=== PATIENT | female | born 1960 | race African-American/Black ===

== ENCOUNTER → 2017-04-20 | Outpatient (CLI) | payer OTHER ==
[~2017-04-20] MED LIST: ALDACTAZIDE PO; ANTIVERT PO; ASPIRIN325 M1 PO; ATIVAN PO; CARVEDILOL12.5 MG PO; CIPRO PO; CLONIDINE1 EAC1 TD; COREG12.5 MG PO; HCTZ; LISINOPRIL; LOTREL 10/20 MG1 CAP PO; LOTREL 10/40 MG1 CAP PO; NORVASC; TOPROL XL PO
--- NOTE | ~2017-04-20 | CT57 ---
[facility] A Service of [facility] RADIOLOGY TEXT RESULTS PATIENT: VALARIE ROCHA LOCATION: [facility] : 64 UNIT #: [id number] AGE: [address]: Brandy Clifford MD SEX: F ORDER DR: [id number] [facility] [address] [place], [place] [address] [id number] O MR#: [id number] [facility] #: [id number] NAME: VALARIE ROCHA : 1960 SEX: F STUDY DATE/TIME: 04/20/2017 14:21 UNIT: [facility] ROOM: STUDY DESCRIPTION: CT Chest Wo Cont Attending Physician: Brandy Clifford M.D. Referring Physician: Brandy Clifford M.D. Ordering Physician: Brandy Clifford M.D. Primary Care Physician: Brandy Clifford M.D. MEDICAL IMAGING REPORT This report is preliminary unless electronic signature is present EXAM CT of the chest without contrast. CLINICAL HISTORY This patient had an abnormal CT of the chest performed February 12, 2016, which showed a tubular structure in the left lower lobe. It was also present in January of 2015. TECHNIQUE Axial CT imaging was obtained from the thoracic inlet through the dome of the diaphragm. No intravenous contrast material was administered. This CT exam was performed with one or more of the following radiation dose reduction techniques: automatic exposure control, adjustment of mA and/or kV according to patient size, and iterative reconstruction. FINDINGS The previously identified, tubular structure within the left lower lobe is again seen. It is unchanged when compared to prior examinations, however, it clearly has a draining artery and vein and is characteristic of a pulmonary AVM. Feeding artery and draining vein both measure about 2 mm in size. This is stable when compared to the prior study from January of 2015. Tiny noncalcified pulmonary nodules seen within the right lower lobe adjacent to the fissure is stable when compared to 2015, and this is benign. No additional pulmonary nodules or masses are seen. The thyroid gland, trachea and esophagus appear unremarkable. There is no pleural or pericardial effusion. Mediastinal lymph nodes do not appear pathologically enlarged. Thoracic aorta measures within normal size limits. Bilateral lipid rich adrenal adenomas are noted. There is a tiny low-attenuation lesions seen within the right hepatic lobe which has been unchanged since January of 2015, and again is benign. I do not see any acute abnormalities within the upper abdomen. Review of bony windows does not demonstrate any aggressive osseous STS. [facility] A Service of [facility] RADIOLOGY TEXT RESULTS PATIENT: VALARIE ROCHA LOCATION: [facility] : 64 UNIT #: [id number] AGE: [address]: Brandy Clifford MD SEX: F ORDER DR: abnormalities. IMPRESSION 1. Previously identified tubular structure seen within the left lower lobe is stable in appearance when compared to an exam from January 24, 2015. Careful review of its morphology reveals that this is actually a pulmonary AVM. Both the feeding artery and draining vein measure about 2 mm in size, and again have been stable when compared to exams dating back to January of 2015. However, pulmonary AVMs can be associated with the risk of stroke and as such thoracic surgery consultation for further management is suggested. Please see the body of the report for any other additional incidental findings. Dictated by... Lelia Epstein M.D. THIS IS AN ELECTRONICALLY VERIFIED REPORT Lelia Epstein M.D. at 04/21/2017 6:10 PM ESMER/jabier TD: 04/20/2017 20:49 JOB #: [id number] MEDICAL IMAGING REPORT Page 1 of 1 COPY
--- NOTE | ~2017-04-20 | PFT ---
[id number] [facility] [address] [place], [place] [address] [id number] O MR#: [id number] NAME: VALARIE ROCHA ROOM: SEX: F STUDY DATE/TIME: 04/22/2017 : 1960 AGE: 56 STUDY DESCRIPTION: Attending Physician: Brandy Clifford M.D. Referring Physician: Brandy Clifford M.D. Primary Care Physician: Brandy Clifford M.D. PULMONARY DIAGNOSTIC REPORT EXAM PFT. FINDINGS Spirometry is normal. There is no significant response to bronchodilators. Flow volume loop is normal. Lung volumes are fairly unremarkable. ERV is reduced, which can be seen in obesity. Diffusion capacity is mildly reduced. Isolated reduced diffusion capacity can be seen in anemia, earlier interstitial lung disease, pulmonary vascular disease, emphysema, etc. and clinical correlation is needed. Dictated by... Mj Mercer M.D. MAIRA/amy TD: 04/22/2017 14:05 JOB #: [id number] PULMONARY DIAGNOSTIC REPORT Page 1 of 1
== END | disposition home or self-care (01) ==
LOC: CRC 13:29
DX: R91.8 Other nonspecific abnormal finding of lung field (principal); J43.9 Emphysema, unspecified
CPT/HCPCS: 71250; 94060; 94726; 94729